=== PATIENT | male | born 1980 | race Caucasian/White ===

== ENCOUNTER 2020-03-28 16:15 | Inpatient (IN) | payer OTHER ==
[~2020-03-28] VITALS: Ht 170.2 cm; Wt 76.2 kg
[2020-03-28] VITALS (109 sets, daily range): BP systolic 125–128; BP diastolic 80–90; PULSE 91–108; TEMP 95.5–97.4; O2SAT 72–100
[~2020-03-28 16:15] MED LIST: CLARITIN 1010 MG/TAB PO; KLONOPIN 0.5MG0.5 MG PO; LORTAB PO; VALTREX 50500 MG/TAB; XANAX 1MG1 MG PO
[2020-03-28 17:03] LABS: HEMATOCRIT 46.8 % (42.0-52.0); HEMOGLOBIN 15.3 g/dl (13.5-18.0); MEAN CELL VOLUME 90 fl (80.0-100.0); MEAN CORPUSCULAR HEMOGLOBIN 29 pg (27.0-31.0); MEAN CORPUSCULAR HGB CONC 33 g/dl (33.0-37.0); PLATELET COUNT 268 K/mm3 (130-400); REDCELL DISTRIBUTION WIDTH-CV 12.4 % (11.5-14.5)
[2020-03-28 17:14] LABS: TRICYCLIC ANTIDEPRESS URINE NEGATIVE
[2020-03-28 17:17] LABS: ACETAMINOPHEN 14 ug/mL (10-30); ALANINE AMINOTRANSFERASE 230 U/L (4-49); ALBUMIN 4.9 gm/dL (3.5-5.0); ALCOHOL(ethanol),MEDICAL 11 mg/dL; ALKALINE PHOSPHATASE 78 U/L (50-136); ANION GAP 25 mmol/L (7-16); AST,SGOT 446 U/L (15-37); BILIRUBIN,TOTAL 0.9 mg/dL (0.0-1.0); BLOOD UREA NITROGEN 14 mg/dL (9-20); CALCIUM 9.1 mg/dL (8.4-10.2); CHLORIDE 102 mmol/L (98-107); CREATININE, serum 1.27 (0.66-1.25); GLUCOSE 184 mg/dL (74-106); POTASSIUM 3.8 mmol/L (3.4-5.0); SODIUM 139 mmol/L (137-145)
[2020-03-28 17:36] LABS: CARBON DIOXIDE 13 mmol/L (22-30); SALICYLATE < 1.0 mg/dL
[2020-03-28 17:42] LABS: BAND 6 % (0-10); EOSINOPHIL 3 % (0-4); LYMPHOCYTE 25 % (20.0-51.0); NEUTROPHILS 51 % (42.0-75.2)
[2020-03-28 17:44] LABS: HYPOCHROMIA 1+
[2020-03-28 19:17] LABS: PROTHROMBIN TIME 11.4 SECONDS (9.7-12.8)
[2020-03-28 19:17] LABS: BASO % 0.2 % (0.0-2.0); EOS # 0.1 (0.0-0.7); EOS % 0.4 % (0-4.0); GRAN # 11.9 (1.4-6.5); GRAN % 89.4 % (42.2-75.2); HEMATOCRIT 42.6 % (42.0-52.0); HEMOGLOBIN 14.3 g/dl (13.5-18.0); LYMPH # 0.7 (1.2-3.4); LYMPH % 5.6 % (20.0-51.0); MEAN CELL VOLUME 87 fl (80.0-100.0); MEAN CORPUSCULAR HEMOGLOBIN 29 pg (27.0-31.0); MEAN CORPUSCULAR HGB CONC 34 g/dl (33.0-37.0); MEAN PLATELET VOLUME 9.3 fl (7.4-10.4); MONO # 0.5 (0.1-0.6); MONO % 3.8 % (1.7-9.3); PLATELET COUNT 244 K/mm3 (130-400); RED BLOOD COUNT 4.92 M/mm3 (4.20-5.60); REDCELL DISTRIBUTION WIDTH-CV 12.5 % (11.5-14.5)
[2020-03-28 19:28] LABS: ALBUMIN 4.2 gm/dL (3.5-5.0); BILIRUBIN,TOTAL 0.7 mg/dL (0.0-1.0); CALCIUM 8.2 mg/dL (8.4-10.2); CREATININE, serum 0.99 (0.66-1.25); POTASSIUM 4.1 mmol/L (3.4-5.0); TOTAL PROTEIN 7.2 gm/dL (6.4-8.2)
--- NOTE | 2020-03-28 19:40 | NUR ---
Pt arrived to ICU room 7 via cart with TRACI Kent RN. Pt transferred from the cart to the ICU bed with the assistance of 4. Unable to orient pt to room due to being intubated/sedated. CIELO Montano, at the bedside to evaluate pt. Call light within reach.
[2020-03-28 20:24] LABS: MAGNESIUM 2.1 mg/dL (1.6-2.3); PHOSPHOROUS 6.1 mg/dL (2.5-4.5)
[2020-03-28 20:40] LABS: TROPONIN-I 0.201 ng/mL (0.000-0.035)
[2020-03-28 21:29] LABS: PARTIAL THROMBOPLASTIN TIME 28.3 SECONDS (26.0-37.0)
--- NOTE | 2020-03-28 22:00 | NUR ---
2000 - CIELO SEPULVEDA, IN ROOM WITH THIS NURSE ASSESSING PT. TWITCHING NOTED TO R CHEEK/JAW, R CONFUCIANIST, R HAND, AND BLE. CIELO SEPULVEDA, DISCUSSING WITH E-CARE AND DECIDED TO INITITATE HYPOTHERMIA PROTOCOL. 2008 - CONSULT FOR DR. CORTES PLACED AND CALLED BY CIELO SEPULVEDA. 2014 - CONSULT FOR DR. CONCEPCION PLACED AND CALLED BY THIS NURSE. 2020 - CONSULT FOR DR. BAUTISTA PLACED AND CALLED BY CIELO SEPULVEDA. 2038 - DR. BAUTISTA IN ROOM FOR CENTRAL LINE PLACEMENT. 2042 - CONSULT FOR DR. HOWARD PLACED AND CALLED BY CIELO SEPULVEDA. 2051 - DR. CORTES IN ROOM TO ASSESS PT. 2099 - XRAY IN ROOM. 2100 - OSEAS BARTLETT, MAINTENANCE AND ENGINEERING MANAGER, PAGED. 2101 - OSEAS BARTLETT CALLED BACK AND NOTIFIED OF NEED FOR ART LINE. 2119 - HYPOTHERMIA WRAPS APPLIED. 2129 - OSEAS BARTLETT IN ROOM TO PLACE ART LINE. 2144 - ART LINE IN PLACE AND ZEROED.
--- NOTE | 2020-03-28 23:32 | NUR ---
POST CODE COOLING PROTOCOL PT IS ON PASS OVER HUMIDIFICATION
[2020-03-29] VITALS (995 sets, daily range): BP systolic 112–180; BP diastolic 69–110; PULSE 60–85; TEMP 32.4–32.5; O2SAT 74–100
[2020-03-29 01:13] LABS: ALBUMIN 3.8 gm/dL (3.5-5.0); BILIRUBIN,TOTAL 0.5 mg/dL (0.0-1.0); CALCIUM 8.3 mg/dL (8.4-10.2); CREATININE, serum 0.61 (0.66-1.25); POTASSIUM 3.5 mmol/L (3.4-5.0); TOTAL PROTEIN 6.7 gm/dL (6.4-8.2)
[2020-03-29 01:26] LABS: TROPONIN-I 6 HR POST INITIAL 0.59 ng/mL (0.000-0.034)
--- NOTE | 2020-03-29 02:39 | NUR ---
Contacted [facility], spoke with Abimael. MTN requests update with patient status change, loss of reflexes, or discussion of withdrawing care. Referral #[id number]
[2020-03-29 04:33] LABS: ARTERIAL BLD GAS TCO2 CT 20.5; ARTERIAL BLOOD GAS BASE EXCESS -5.2 (-2-2); ARTERIAL BLOOD GAS HCO3 19.4 meq/L (22-26); ARTERIAL BLOOD GAS PCO2 35.3 mmHg (35-45); ARTERIAL BLOOD GAS pH 7.36 (7.35-7.45)
--- NOTE | 2020-03-29 05:00 | NUR ---
NO SEDATION VACATION PERFORMED DUE TO PT IN COOLING PHASE OF HYPOTERMIC PROTOCOL.
[2020-03-29 07:28] LABS: ALANINE AMINOTRANSFERASE 228 U/L (4-49); ALBUMIN 3.7 gm/dL (3.5-5.0); ALKALINE PHOSPHATASE 52 U/L (50-136); ANION GAP 8 mmol/L (7-16); AST,SGOT 220 U/L (15-37); BILIRUBIN,TOTAL 0.6 mg/dL (0.0-1.0); BLOOD UREA NITROGEN 17 mg/dL (9-20); CALCIUM 8.5 mg/dL (8.4-10.2); CARBON DIOXIDE 23 mmol/L (22-30); CHLORIDE 106 mmol/L (98-107); CHOLESTEROL 102 mg/dL (120-200); CHOLESTEROL RISK RATIO 1.5; CREATININE, serum 0.51 (0.66-1.25); GLUCOSE 110 mg/dL (74-106); HDL CHOLESTEROL 68 mg/dL; LDL CHOLESTEROL 27 mg/dL; PHOSPHOROUS 3.4 mg/dL (2.5-4.5); POTASSIUM 3.5 mmol/L (3.4-5.0); SODIUM 137 mmol/L (137-145); TOTAL PROTEIN 6.4 gm/dL (6.4-8.2); TRIGLYCERIDE 35 mg/dL
[2020-03-29 07:31] LABS: ACETAMINOPHEN < 10 ug/mL (10-30)
[2020-03-29 07:41] LABS: TROPONIN-I 0.434 ng/mL (0.000-0.035)
[2020-03-29 10:08] LABS: ARTERIAL BLD GAS O2 SATURATION 98.2 % (92-100); ARTERIAL BLD GAS TCO2 CT 20.1; ARTERIAL BLOOD GAS PO2 120.2 mmHg (80-100); ARTERIAL BLOOD GAS pH 7.34 (7.35-7.45)
[2020-03-29 13:26] LABS: BILIRUBIN,TOTAL 0.6 mg/dL (0.0-1.0); CREATININE, serum 0.42 (0.66-1.25); POTASSIUM 3.7 mmol/L (3.4-5.0); TOTAL PROTEIN 7.1 gm/dL (6.4-8.2)
--- NOTE | 2020-03-29 14:11 | NUR ---
Patient is currently intubated and hypothermic. SW contact patient's father Kin Hart to conduct intake evaluation. Patient lives at home alone in [place]. Patient does not have a DPOA-HC that father was aware of. Patient requires no assistance with ADLs. Patient uses CPAP per father's report; however father was unsure what company he got this from. Father did not know who patient's PCP was. Patient uses [facility] pharmacy in [place] for medications. Due to patient status, SW is unable to communicate with patient. RN reports that patient is still hypothermic. EEG is scheduled to determine evidence and extent of any brain damage. Social work will continue to follow as needs progress.
--- NOTE | 2020-03-29 19:03 | NUR ---
Report given to LAUREN Fonseca. Care relinquised at this time.
[2020-03-29 19:19] LABS: BILIRUBIN,TOTAL 0.6 mg/dL (0.0-1.0); CALCIUM 8.7 mg/dL (8.4-10.2); CREATININE, serum 0.38 (0.66-1.25); TOTAL PROTEIN 6.9 gm/dL (6.4-8.2)
[2020-03-29 19:31] LABS: POTASSIUM 2.9 mmol/L (3.4-5.0)
--- NOTE | 2020-03-29 19:49 | NUR ---
HUMIDIFIER IS SET AT 31 PER COOLING PROTOCOL
--- NOTE | 2020-03-29 20:00 | NUR ---
Assessment complete. Pt is on ventilator. Unresponsive to voice or painful stimuli. RIJ TL infusing free of complications. Antonio to DD is intact. Cooling blanket in place. Pt repositioned in bed. Call light within reach.
--- NOTE | 2020-03-29 21:20 | NUR ---
Pt has been in hypothermia protocol for 24 hours. Beginning rewarming at this time.
--- NOTE | 2020-03-29 21:47 | NUR ---
HEATING PROTOCOL INITIATED HEATER IS SET BACK TO 37 TEMP IS CLIMBING ON VENT HEATER AND WAS 35 WHEN THIS RT IN THE ROOM LAUREN DUGAN IS NOTIFIED AND RT WILL MONITOR VENT TEMP AND ANY CHANGES
[2020-03-30] VITALS (683 sets, daily range): BP systolic 124–148; BP diastolic 62–87; PULSE 79–124; TEMP 92.8–99.2; O2SAT 85–100
[2020-03-30 03:10] LABS: CALCIUM 9.3 mg/dL (8.4-10.2); CREATININE, serum 0.39 (0.66-1.25); POTASSIUM 3.7 mmol/L (3.4-5.0)
[2020-03-30 04:40] LABS: ARTERIAL BLD GAS O2 SATURATION 96.7 % (92-100); ARTERIAL BLOOD GAS BASE EXCESS -7.8 (-2-2); ARTERIAL BLOOD GAS HCO3 14.3 meq/L (22-26); ARTERIAL BLOOD GAS PO2 86.3 mmHg (80-100); ARTERIAL BLOOD GAS pH 7.44 (7.35-7.45)
[2020-03-30 04:41] LABS: ARTERIAL BLOOD GAS PCO2 21.5 mmHg (35-45)
--- NOTE | 2020-03-30 05:00 | NUR ---
NO SEDATION VACATION PERFORMED PT IS STILL RE-WARMING.
[2020-03-30 06:43] LABS: HEMATOCRIT 42.7 % (42.0-52.0); HEMOGLOBIN 14.9 g/dl (13.5-18.0); MEAN CELL VOLUME 84 fl (80.0-100.0); MEAN CORPUSCULAR HEMOGLOBIN 29 pg (27.0-31.0); MEAN CORPUSCULAR HGB CONC 35 g/dl (33.0-37.0); MEAN PLATELET VOLUME 9.8 fl (7.4-10.4); PLATELET COUNT 284 K/mm3 (130-400); RED BLOOD COUNT 5.08 M/mm3 (4.20-5.60); REDCELL DISTRIBUTION WIDTH-CV 12.4 % (11.5-14.5)
[2020-03-30 06:50] LABS: CALCIUM 9.4 mg/dL (8.4-10.2); CREATININE, serum 0.43 (0.66-1.25); POTASSIUM 3.6 mmol/L (3.4-5.0)
--- NOTE | 2020-03-30 07:20 | NUR ---
REPORT GIVEN TO LAUREN HEALY, AND LAUREN LEONARD.
[2020-03-30 07:25] LABS: MAGNESIUM 1.5 mg/dL (1.6-2.3); PHOSPHOROUS 2.7 mg/dL (2.5-4.5)
--- NOTE | 2020-03-30 08:30 | NUR ---
Assessment completed and charted. Patient opens eyes to painful stimuli-eyes are rolled up and to the left. Pupil responce sluggish. No cough or gag reflex present. Patient repositioned. Will continue to monitor.
--- NOTE | 2020-03-30 09:42 | NUR ---
Initialt visit attempt; Patient vented. Affiliate Marketing Specialist offered prayer for healing of mind, body and spirit for Aris outside his door.
--- NOTE | 2020-03-30 10:00 | NUR ---
Perri from [facility] called regarding update on patient. Update provided. Perri would like to be updated if family care meeting is going to take place and when. Direct cell number is [phone]
[2020-03-30 10:02] LABS: BASO % 0.1 % (0.0-2.0); EOS % 0.1 % (0-4.0); GRAN # 14.5 (1.4-6.5); GRAN % 88.3 % (42.2-75.2); MONO # 0.8 (0.1-0.6); MONO % 5.1 % (1.7-9.3)
--- NOTE | 2020-03-30 11:35 | NUR ---
LAUREN Fisher from [facility] [employer] [facility] called for update on patient. Updated on sedation, labs, current testing. No further questions at this time.
--- NOTE | 2020-03-30 12:45 | NUR ---
Patient father Kin called for an udpated at 1200. Patient shankar called at 1220 for update. Security code provided for both. Updated provided for both. Educated regarding 1 family to be point of contact. Will decide on point on contact.
--- NOTE | 2020-03-30 16:03 | NUR ---
Patient father called requesting staff speak with Dr. Lea and give Dr. Lea an update so Dr. Lea can explain to patient father current situation. This nurse attempted to provide update to father. Father requesting physician to update. Also would like to pass on patient right hand and some fingers are "broken" and patient was to see an orthopedic surgeon in [place]. Spoke with Dr. Lay. Dr. Lay will call patient father and updated regarding patient right hand.
--- NOTE | 2020-03-30 16:29 | NUR ---
Tricia Foster-mother called for update. Educated regarding one contact per family for updates. Update given at this time.
--- NOTE | 2020-03-30 18:14 | NUR ---
Patient minimal responsive to painful stimuli, otherwise unresponsive. Continues on ventilator. No change in settings. Will continue to monitor.
--- NOTE | 2020-03-30 19:13 | NUR ---
Report given to LAUREN Fonseca
--- NOTE | 2020-03-30 20:00 | NUR ---
Assessment complete. Pt is sedated and on the ventilator. He is minimally responsive to painful stimuli. RR art line intact. RIJ TL intact. Antonio to DD is intact. Rectal thermometer intact. OG intact. Pt repositioned in bed. Call light within reach.
[2020-03-31] VITALS (727 sets, daily range): BP systolic 113–140; BP diastolic 45–95; PULSE 78–129; TEMP 97.9–99.5; O2SAT 88–100
--- NOTE | 2020-03-31 00:30 | NUR ---
Upon assessment pt's pupils are found to be fixed and nonreactive with L sided facial drooping verified with second RN. Pt now has a notable corneal reflex, which is a new finding. CIELO Montano, notified of findings and she is at bedside to evaluate pt. Pt repositioned in bed and sedation vacation started at this time to re-evaluate pt.
--- NOTE | 2020-03-31 03:50 | NUR ---
0155 - ENTERED ROOM TO ASSESS PT AND HE WAS FOUND TO BE 89% ON 30% FIO2. RT NOTIFIED AND IN ROOM TO BUMP FIO2 TO 35%. 0200 - DANA CAME ON THE CAMERA TO ASSESS PT LINES THAT WERE INFUSING. THIS NURSE ASKED TO SPEAK TO A PHYSICIAN. DR. HANNAH CAME ON THE CAMERA. HE WAS NOTIFIED THAT AT 0000 PT HAD FIXED AND NON REACTIVE PUPILS THAT WERE EQUAL AT 4MM. PUPILS ARE NOW STILL FIXED AND NON REACTIVE BUT ARE NOW UNEQUAL WITH THE R PUPIL AT 6MM AND L AT 4MM. PT IS STILL RESPONSIVE TO PAINFUL STIMULI. DR. HANNAH STATES "THAT THERE IS NOTHING WE CAN DO AND TO HAVE DAY SHIFT RE-EVALUATE." 0201 - THIS NURSE IS NOT SATISFIED WITH THAT ANSWER. CALLED CIELO SEPULVEDA, FOR FURTHER RECCOMENDATIONS. NO ANSWER FROM CIELO SEPULVEDA. 0203 - CALLED CIELO SEPULVEDA. AGAIN, NO ANSWER. 0205 - CALLED CIELO SEPULVEDA. AGAIN, NO ANSWER. 0208 - CALLED MANDY LUDWIG, TO NOTIFY HER OF THE SITUATION. STATES SHE WILL COME AND SEE THE PT. 0210 - CALLED CIELO SEPULVEDA. SHE STATES TO GET A HEAD CT. 0212 - CALLED MARNI MARTIN, AND NOTIFIED HIM OF NEED FOR HEAD CT. 0213 - CALLED PRAKASH RT, AND NOTIFIED HER OF NEED FOR ASSISTANCE WITH TRANSFER TO CT. 0220 - CALLED DR. CORTES, NEURO, TO NOTIFIY HIM OF NEW FINDINGS. HE AGREES TO GET HEAD CT AND RECOMMENDS ASPIRIN. CIELO SEPULVEDA, NOTIFIED OF WHAT DR. CORTES STATES. 0230 - PT TAKEN TO CT. 0255 - PT BROUGHT BACK TO ROOM. 0256 - [facility] CALLED THIS NURSE TO NOTIFY OF CRITICAL RESULTS FROM CT SCAN. STATES THAT THEY WOULD LIKE TO SPEAK TO A PHYSICIAN. CALL TRANSFERRED TO CIELO SEPULVEDA. 0305 - CIELO SEPULVEDA, IN ROOM TO EVALUATE PT AND NOTIFY THIS NURSE OF CT RESULTS. 0307 - CALLED DANA AND SPOKE WITH DR. HANNAH AND TOLD HIM THE CT RESULTS AND REQUESTS AN ORDER FOR MANNITOL. 0315 - SPOKE WITH KEYSHA, PT'S FATHER, AND UPDATED HIM ON THE PT. CIELO SEPULVEDA, ON THE PHONE WITH RAFFAELE, PT'S MOTHER, AND UPDATED HER ON THE PT. BOTH FATHER AND MOTHER ARE IN AGREEANCE TO MAKE THE PT A DNR. 0415 - CALLED [facility] AND SPOKE WITH ROZINA TO UPDATE THEM ON THE PT'S CHANGE IN STATUS.
[2020-03-31 04:47] LABS: ARTERIAL BLD GAS O2 SATURATION 96.2 % (92-100); ARTERIAL BLD GAS TCO2 CT 21.2; ARTERIAL BLOOD GAS BASE EXCESS -2.2 (-2-2); ARTERIAL BLOOD GAS HCO3 20.3 meq/L (22-26); ARTERIAL BLOOD GAS PCO2 28.9 mmHg (35-45); ARTERIAL BLOOD GAS pH 7.47 (7.35-7.45)
--- NOTE | 2020-03-31 05:00 | NUR ---
SEDATION VACATION STARTED AT 0035 DUE TO PT'S FIXED PUPILS THAT WERE IDENTIFIED. HAVE NOT INCREASED SEADTION SINCE.
[2020-03-31 05:22] LABS: BASO % 0.1 % (0.0-2.0); GRAN # 9.6 (1.4-6.5); GRAN % 84.2 % (42.2-75.2); HEMATOCRIT 38.5 % (42.0-52.0); LYMPH % 8.9 % (20.0-51.0); MEAN CELL VOLUME 86 fl (80.0-100.0); MEAN CORPUSCULAR HEMOGLOBIN 29 pg (27.0-31.0); MEAN CORPUSCULAR HGB CONC 34 g/dl (33.0-37.0); MEAN PLATELET VOLUME 10.1 fl (7.4-10.4); MONO # 0.7 (0.1-0.6); MONO % 6.5 % (1.7-9.3); PLATELET COUNT 214 K/mm3 (130-400); RED BLOOD COUNT 4.48 M/mm3 (4.20-5.60); REDCELL DISTRIBUTION WIDTH-CV 12.7 % (11.5-14.5)
[2020-03-31 05:33] LABS: CALCIUM 8.4 mg/dL (8.4-10.2); CREATININE, serum 0.54 (0.66-1.25); POTASSIUM 4.2 mmol/L (3.4-5.0)
--- NOTE | 2020-03-31 09:30 | NUR ---
Patient unresposive to all stimuli. Pupils fixed and nonreactive. Oral secretions present and suctioned. Coffee ground gastic drainage in OG tubing. Will continue to monitor.
--- NOTE | 2020-03-31 10:11 | NUR ---
Follow up; Attended Physician and Staff 'zoom' meeting with family to set up a visitation and personal meeting with brother, sister, Physician and Staff on Monday.
--- NOTE | 2020-03-31 11:29 | NUR ---
farmworker poultry was on family zoom meeting. Patient's mother and father will visit patient at the hospital on 04/01 at 9:00am. MTN will have staff member present in ICU today at 11:00.
--- NOTE | 2020-03-31 12:00 | NUR ---
Patient FiO2 increased to 70% for saturations of 89-90%.
[2020-03-31 15:39] LABS: CALCIUM 8.4 mg/dL (8.4-10.2); CREATININE, serum 0.51 (0.66-1.25); POTASSIUM 4.1 mmol/L (3.4-5.0)
--- NOTE | 2020-03-31 17:00 | NUR ---
Patient sedation stopped while in MRI. Patient had no change in mental status. Sedation resumed after return from MRI
--- NOTE | 2020-03-31 17:00 | NUR ---
Patient taken to MRI at 1556 and returned at 1700. Patient bagged during MRI off vent. Given Versed 2mg for sedation during MRI.
--- NOTE | 2020-03-31 18:53 | NUR ---
Patient continues to be unresponsive. Report given to LAUREN Fonseca
--- NOTE | 2020-03-31 20:00 | NUR ---
Assessment complete. Pt is on ventilator. Pt is minimally responsive to pain. Will turn his head back and forth while suctioning mouth. RIJ TL intact. OG intact. Antonio to DD is intact. Pt repositioned in bed. Call light within reach.
[2020-03-31 21:15] LABS: CALCIUM 8.7 mg/dL (8.4-10.2); CREATININE, serum 0.48 (0.66-1.25)
--- NOTE | 2020-04-01 09:41 | NUR ---
Follow-up; Coupling Machine Operator attended Palliative Care Meeting with Physician, Staff and parents of Aris where it was decided to unhook life support. Coupling Machine Operator offered comfort to parents.
--- NOTE | 2020-04-01 20:10 | NUR ---
Pt returns to ICU room 7 at this time with OR team.
--- NOTE | 2020-04-01 20:30 | NUR ---
ANUSHKA Antonio, and INT removed and body cleaned at this time.
--- NOTE | 2020-04-01 21:50 | NUR ---
Abigail home quality audit representative at bedside to retrieve body. Pt transferred from the ICU bed to the home cart. home quality audit representative excorted out with information systems security manager.
[2020-04-01 22:31] LABS: ARTERIAL BLOOD GAS PCO2 26.5 mmHg (35-45); ARTERIAL BLOOD GAS pH 7.53 (7.35-7.45)
[2020-04-01 22:32] LABS: ARTERIAL BLD GAS O2 SATURATION 98.6 % (92-100); ARTERIAL BLD GAS TCO2 CT 22.5; ARTERIAL BLOOD GAS BASE EXCESS 0.2 (-2-2); ARTERIAL BLOOD GAS HCO3 21.6 meq/L (22-26); ARTERIAL BLOOD GAS PO2 128.8 mmHg (80-100)
--- NOTE | 2020-04-01 23:57 | NUR ---
PT TRANSFERED TO THE PACU ON THE VENT AT 1756. PT EXTUBATED PER MTN AT 1808
[2020-04-02 02:53] LABS: ARTERIAL BLD GAS O2 SATURATION 95.6 % (92-100); ARTERIAL BLOOD GAS BASE EXCESS -1.9 (-2-2); ARTERIAL BLOOD GAS HCO3 20.5 meq/L (22-26); ARTERIAL BLOOD GAS PCO2 28.2 mmHg (35-45); ARTERIAL BLOOD GAS PO2 78.7 mmHg (80-100); ARTERIAL BLOOD GAS pH 7.48 (7.35-7.45)
[2020-04-08 14:10] LABS: CALCIUM 8.8 mg/dL (8.4-10.2); CREATININE, serum 0.5 (0.66-1.25); POTASSIUM 3.9 mmol/L (3.4-5.0)
[2020-04-08 14:13] LABS: CALCIUM 8.9 mg/dL (8.4-10.2); CREATININE, serum 0.49 (0.66-1.25); POTASSIUM 3.9 mmol/L (3.4-5.0)
[2020-04-08 14:17] LABS: INR 1.1 (0.8-3.0); PARTIAL THROMBOPLASTIN TIME 32.2 SECONDS (26.0-37.0); PROTHROMBIN TIME 12.5 SECONDS (9.7-12.8)
[2020-04-08 14:19] LABS: CREATININE, serum 0.59 (0.66-1.25); POTASSIUM 3.6 mmol/L (3.4-5.0)
[2020-04-08 14:20] LABS: CALCIUM 8.8 mg/dL (8.4-10.2); MAGNESIUM 1.9 mg/dL (1.6-2.3); PHOSPHOROUS 2.6 mg/dL (2.5-4.5)
[2020-04-08 14:24] LABS: COLLECTION METHOD CATHETER
[2020-04-08 14:29] LABS: PH 8 (5-8); URINE APPEARANCE Clear; URINE COLOR Straw; URINE GLUCOSE Negative (NEGATIVE); URINE PROTEIN(semi-quant) Negative (NEGATIVE)
[2020-04-08 14:30] LABS: MUCOUS Present /lpf; SQUAMOUS EPITHELIAL None Seen /hpf; URINE BILIRUBIN Negative (NEGATIVE); URINE BLOOD Negative (NEGATIVE); URINE KETONE 1+ (NEGATIVE); URINE LEUKOCYTE ESTERASE Negative (NEGATIVE); URINE NITRATE Negative (NEGATIVE); URINE UROBILINOGEN Negative (NEGATIVE)
[2020-04-08 14:31] LABS: URINE BACTERIA None Seen /hpf
[2020-04-08 14:36] LABS: BASO % 0.1 % (0.0-2.0); EOS % 0.2 % (0-4.0); GRAN # 7.9 (1.4-6.5); GRAN % 74.4 % (42.2-75.2); HEMATOCRIT 36.2 % (42.0-52.0); HEMOGLOBIN 12.3 g/dl (13.5-18.0); LYMPH # 1.7 (1.2-3.4); LYMPH % 15.9 % (20.0-51.0); MEAN CELL VOLUME 87 fl (80.0-100.0); MEAN CORPUSCULAR HEMOGLOBIN 30 pg (27.0-31.0); MEAN CORPUSCULAR HGB CONC 34 g/dl (33.0-37.0); MEAN PLATELET VOLUME 10.4 fl (7.4-10.4); MONO % 8.9 % (1.7-9.3); PLATELET COUNT 218 K/mm3 (130-400); RED BLOOD COUNT 4.17 M/mm3 (4.20-5.60)
[2020-04-08 14:36] LABS: BASO % 0.2 % (0.0-2.0); EOS % 0.1 % (0-4.0); GRAN % 82.6 % (42.2-75.2); HEMATOCRIT 37.6 % (42.0-52.0); HEMOGLOBIN 12.9 g/dl (13.5-18.0); LYMPH # 1.2 (1.2-3.4); LYMPH % 8.9 % (20.0-51.0); MEAN CELL VOLUME 87 fl (80.0-100.0); MEAN CORPUSCULAR HEMOGLOBIN 30 pg (27.0-31.0); MEAN CORPUSCULAR HGB CONC 34 g/dl (33.0-37.0); MONO % 7.7 % (1.7-9.3); PLATELET COUNT 238 K/mm3 (130-400); RED BLOOD COUNT 4.33 M/mm3 (4.20-5.60)
[2020-04-15 12:44] LABS: ARTERIAL BLD GAS TCO2 CT 14.1; ARTERIAL BLOOD GAS BASE EXCESS -19.4 (-2-2); ARTERIAL BLOOD GAS HCO3 12.4 meq/L (22-26); ARTERIAL BLOOD GAS PCO2 53.2 mmHg (35-45)
[2020-04-15 12:46] LABS: ARTERIAL BLOOD GAS PO2 153.8 mmHg (80-100); ARTERIAL BLOOD GAS pH 6.99 (7.35-7.45)
== END 2020-04-01 22:15 | disposition expired | DRG 917 ==
LOC: COL.ER 16:15 → ICU 17:56
PROVIDERS: Emergency Medicine; Hospitalist; Internal Medicine Pulmonary Disease; Student in an Organized Health Care Education/Training Program; ADMIT Student in an Organized Health Care Education/Training Program
PROC: 02HV33Z Insertion of Infusion Device into Superior Vena Cava, Percutaneous Approach (ICD-10-PCS; 2020-03-28)
PROC: 0BH17EZ Insertion of Endotracheal Airway into Trachea, Via Natural or Artificial Opening (ICD-10-PCS; principal; 2020-03-29)
PROC: 5A1945Z Respiratory Ventilation, 24-96 Consecutive Hours (ICD-10-PCS; 2020-03-29)
DX: T43.622A Poisoning by amphetamines, intentional self-harm, initial encounter (principal); J96.01 Acute respiratory failure with hypoxia; I21.A1 Myocardial infarction type 2; N17.9 Acute kidney failure, unspecified; E87.2 Acidosis; I67.82 Cerebral ischemia; G93.1 Anoxic brain damage, not elsewhere classified; R74.01 Elevation of levels of liver transaminase levels; I46.9 Cardiac arrest, cause unspecified; J45.909 Unspecified asthma, uncomplicated; Z20.822 Contact with and (suspected) exposure to COVID-19; T68.XXXA Hypothermia, initial encounter; R25.3 Fasciculation; E83.39 Other disorders of phosphorus metabolism; F41.9 Anxiety disorder, unspecified
CPT/HCPCS: 99233-AI; C9113; J0132; J0330; J0690; J1644; J1650; J1953; J2060; J2250; J2270; J2310; J2597; J2704; J3010; J3475; J3480; J7030; J7040; J7050; J7070; J7120